=== PATIENT | female | born 1955 | race Caucasian/White ===

== ENCOUNTER → 2017-08-02 11:51 | Outpatient (CLI) | payer MEDICAID, SELFPAY ==
--- NOTE | 2017-08-02 12:03 | XR_ITS ---
XR chest 2V HISTORY: ITS.REASON: SHORTNESS OF BREATH,LUNG DISEASE ORDERING PHYSICIAN: Facundo Carrera PATIENT AGE: 62 years COMPARISON: 06-10-15 FINDINGS: There is cardiomegaly. There is chronic pulmonary fibrotic changes as before. There is slight increased density in the right upper lobe compared to the previous exam which could represent superimposed pneumonia. There is also increased density in the lower lobes however, this is felt to be more technical in nature and due to low lung volumes and the superimposed pulmonary fibrosis. There is a right shoulder prosthesis present. IMPRESSION: Diffuse pulmonary fibrosis. Interval development of increased density in the right upper lobe posteriorly. This could be related to pneumonia. Ongoing fibrotic change or even developing mass is a consideration. Consider chest CT with contrast for further evaluation
== END ==
PROVIDERS: PCP Internal Medicine; Visit Provider Internal Medicine
DX: R06.02 Shortness of breath (principal)
CPT/HCPCS: 71046

== ENCOUNTER 2017-11-25 15:51 | Inpatient (IN) ==
--- NOTE | 2017-11-25 15:57 | Emergency Department Note ---
ED Disposition Clinical Impression: Hypoxemia, Mass of right lung, COPD exacerbation Congestive heart failure Qualifiers: Heart failure type: unspecified Heart failure chronicity: unspecified Qualified Code(s): I50.9 - Heart failure, unspecified Disposition: Still a Patient Condition on Discharge: Serious - Critical Care Critical Care Time: Yes Attestation: On , the high probability of a clinically significant, sudden or life threatening deterioration of the following system(s) required my full and direct attention, intervention and personal management. The time I documented below is in addition to time spent performing reported procedures but includes the following listed in this critical care notation. Total Critical Care Time: 35 Vital system(s) involved:: Respiratory Failure My critical care processes included: Assessment & monitoring of V/S, Initial and Re-exams, Data Review/Interpretation, Coordinating Care, Medication Orders and management, Documentation Medical Decision Making - Eric Inquiry Pt receiving controlled substance: No Vital Signs: 11/25/17 15:52 11/25/17 16:08 11/25/17 16:26 Temperature 97.7 F Temperature Source Oral Pulse Rate 105 H Pulse Rate [Right Brachial] 107 H Respiratory Rate 28 H Blood Pressure [Right Arm] 104/69 Blood Pressure Mean [Right Arm] 80 Blood Pressure Source [Right Arm] Automatic Cuff Blood Pressure Position [Right Arm] Sitting 02 Sat by Pulse Oximetry 69 L 69 L 80 L Oxygen Delivery Method Nasal Cannula Nasal Cannula Nasal Cannula Oxygen Flow Rate (LPM) 3.5 6 6 11/25/17 16:45 11/25/17 16:52 Temperature Temperature Source Pulse Rate Pulse Rate [Right Brachial] 98 H Respiratory Rate 22 Blood Pressure [Right Arm] 122/75 Blood Pressure Mean [Right Arm] 90 Blood Pressure Source [Right Arm] Automatic Cuff Blood Pressure Position [Right Arm] Supine 02 Sat by Pulse Oximetry 93 L 96 Oxygen Delivery Method Vapotherm Vapotherm Oxygen Flow Rate (LPM) 45 - Lab Data Lab Results 11/25/17 15:57: Specimen Source Right radial, O2 % 45%, ABG pH 7.46 H, ABG pCO2 31.1 L, ABG pO2 40.9 L, ABG HCO3 21.8 L, ABG Total CO2 22.7 L, ABG O2 Saturation 74 L*, ABG Base Excess -2.0, Foster Test Acceptable 11/25/17 16:00: WBC 7.3, RBC 5.88 H, Hgb 18.3 H*, Hct 58.3 H, MCV 99.2 H, MCH 31.0, MCHC 31.3 L, RDW 15.1, Plt Count 252, MPV 8.2, Neut % (Auto) 69.2, Lymph % (Auto) 24.5, [place] % (Auto) 5.3, Eos % (Auto) 0.3, Baso % (Auto) 0.6, Neut # ( Auto) 5.1, Lymph # (Auto) 1.8, [place] # (Auto) 0.4, Eos # (Auto) 0.0, Baso # (Auto ) 0.1 11/25/17 16:38: Sodium 138, Potassium 5.2 H, Chloride 100, Carbon Dioxide 29, Anion Gap 14.2, BUN 35 H, Creatinine 1.73 H, Estimated Creat Clear 51, Estimated GFR 30 L, Est GFR ( Amer) 36 L, Glucose 172 H, Calcium 9.1, Troponin I 0.03 11/25/17 16:38: B-Natriuretic Peptide 1430 H 11/25/17 16:38: Lactic Acid 4.2 H 11/25/17 17:00: Urine Color Yellow, Urine Appearance Sl cloudy, Urine pH 5.5, Ur Specific [place] >= 1.030, Urine Protein 3+, Urine Glucose (UA) Negative, Urine Ketones Negative, Urine Blood Trace-i, Urine Nitrate Negative, Urine Bilirubin Negative, Urine Urobilinogen 1.0, Ur Leukocyte Esterase Negative Result diagrams: 11/25/17 16:00 11/25/17 16:38 Orders (Tests/Meds): ED MEDICATIONS Generic Name Dose Route Start Last Admin Trade Name Oscarq PRN Reason Stop Dose Admin Enoxaparin Sodium 90 mg 11/25/17 18:02 11/25/17 18:16 Lovenox 100mg/Ml Syringe SQ 12/25/17 18:01 90 mg BID DELMY Administration Azithromycin 500 mg/ Sodium 250 mls @ 250 mls/hr 11/25/17 18:15 Chloride IV 12/09/17 18:14 Q24H DELMY Protocol Ceftriaxone Sodium 1 gm/ 50 mls @ 100 mls/hr 11/25/17 18:15 11/25/17 18:16 Sodium Chloride IV 12/09/17 18:14 100 mls/hr Q24H DELMY Administration Protocol Sodium Chloride 3 ml 11/25/17 16:24 Sodium Chloride 3% 15ml [facility] 12/25/17 16:23 ONCE PRN INDUCE SPUTUM COLLECTION Discontinued Medications Generic Name Dose Route Start Last Admin Trade Name Freq PRN Reason Stop Dose Admin Albuterol/Ipratropium 3 ml 11/25/17 16:06 11/25/17 16:09 Duoneb 3ml [facility] 11/25/17 16:07 3 ml ONCE ONE Administration Furosemide 40 mg 11/25/17 18:01 11/25/17 18:15 Lasix 40mg/4ml Vial IV 11/25/17 18:02 40 mg ONCE ONE Administration Methylprednisolone Sodium Succinate 125 mg 11/25/17 16:09 11/25/17 16:09 Solu-Medrol 125mg/2ml Vial IV 11/25/17 16:10 125 mg ONCE ONE Administration ORDERS Category Date Time Status XR chest portable Stat Exams 11/25/17 15:57 Taken D-Dimer Stat Lab 11/25/17 16:58 Received Lactic Acid Follow Up (4 hr) Stat Lab 11/25/17 17:19 Ordered UA [Urinalysis and Microscopic] Stat Lab 11/25/17 17:00 Results Sputum Culture & Gram Stain Stat Micro 11/25/17 16:24 Ordered Arterial Blood Gas Routine RT 11/25/17 16:15 Received - Radiology Data #1 Image(s): Chest Image Reviewed: Yes I reviewed the patient's radiology image Diffuse fibrosis. Right upper lobe mass. Most recent chest x-ray for comparison is 08/02/17, at which time reading was diffuse pulmonary fibrosis, interval development of increased density in the right upper lobe posteriorly which could be related to pneumonia, ongoing fibrotic change, or even developing mass. Had a chest CT 06/11/15 which did not show a mass. - ECG Data Tracing #1 EKG interpreted by Diego Bolivar MD: Rhythm: sinus tachycardia Rate: 108 [place]: normal Ectopy: none Conduction: normal ST Segment Changes: Nonspecific T Wave Changes: none Q Waves: Septal Right ventricular hypertrophy no evidence of acute ischemia or injury - Physician Consults Physician Consulted: Kati Time: 18:03 Reason -: Admission Comment/Response: Agrees to admit the patient to the hospital. We discussed the patient's clinical information, including history, exam, laboratory and radiology results and ED course. Per hospital procedure, I will write temporary bridge inpatient orders on the patient. Specific orders requested by the admitting physician: No CT angiogram at this time, estimated GFR too low. D -dimer. Lovenox 1 mg/kg twice daily. Lasix IV 1. Recheck labs in the morning. Continue antibiotics, nebulizer treatments, steroids. - Reevaluation(s) Time: 18:23 Reevaluation #1: Much improved. Pulse ox 98% on high flow nasal cannula treatment Medical Decision Narrative: 4:20 PM: Patient does not want to be on BiPAP. She does consent to Vapotherm. General Adult HPI - General Stated complaint: SOA Time Seen by Provider: 11/25/17 15:57 - History of Present Illness HPI narrative: Sent from Dr. Carrera's office due to hypoxia and cyanosis. She says that she was seeing Dr. Carrera because she has been more short of breath for a month, severe for the past 3 days. She has a cough with reed sputum with some blood. She says she is afebrile, but has not taken her temperature. She has increased swelling of her legs for 3 days unresponsive to diuretic. She has a discomfort in her chest like she cannot get a deep enough breath, but no other chest pain. She has COPD. She is on oxygen at home. Smokes 1 cigarette per day. She denies history of congestive heart failure, she does have coronary artery disease and a stent. She says that is a DNR, DO NOT INTUBATE. She has never been BiPAP or CPAP. - Related Data Allergies Allergy/AdvReac Type Severity Reaction Status Date / Time codeine Allergy Unknown Unverified 04/26/17 15:06 [facility] History I have reviewed the patient's past medical history: Yes ROS Obtained: Yes All systems reviewed & no additional complaints - Constitutional Constitutional: Reports fever(s) - Cardiovascular Cardiovascular: Reports as per HPI, Reports leg edema - Respiratory Respiratory: Yes cough, Yes dyspnea, Yes coughing up blood Physical Exam - General General appearance: alert, in distress (Respiratory) - Head Head exam: atraumatic, normocephalic, normal inspection - Eye Eye exam: Present: normal appearance, PERRL, EOMI - ENT ENT exam: Present: normal exam, normal oropharynx, mucous membranes moist, TM's normal bilaterally, normal external ear exam - Neck Neck exam: Present: normal inspection, full ROM, trachea midline. Absent: meningismus, lymphadenopathy - Chest Chest inspection: Present: normal inspection, symmetric chest wall rise. Absent : tenderness - Respiratory Respiratory exam: Present: respiratory distress, other (Decreased breath sounds) - Cardiovascular Cardiovascular exam: Present: regular rate, normal rhythm. Absent: JVD - Abdominal Exam Abdominal exam: Present: soft, normal bowel sounds. Absent: distention, tenderness, guarding - Extremities Exam Extremities exam: Present: other (4+ bilateral pitting pedal and pretibial edema ) - Back Exam Back exam: Present: normal inspection. Absent: tenderness - Neurological Exam Neurological exam: Present: alert, oriented X3 - Psychiatric Psychiatric exam: Present: normal affect, normal mood - Skin Skin exam: Present: warm, dry, intact, normal color
[2017-11-25 16:15] LABS: Basophils # 0.1 K/mm3 (0-0.2); Basophils % 0.6 % (0.1-2.0); Eosinophils % 0.3 % (0.1-12.0); Hematocrit 58.3 % (37.0-47.0); Lymphocytes # 1.8 K/mm3 (0.7-4.5); Lymphocytes % 24.5 K/mm3 (10-50); Mean Corpuscular HGB Conc 31.3 g/dL (31.8-35.4); Mean Corpuscular Volume 99.2 fl (81-99); Mean Platelet Volume 8.2 fl (7.4-10.4); Monocytes # 0.4 K/mm3 (0.1-1.0); Monocytes % 5.3 % (1.7-9.3); Neutrophils # 5.1 K/mm3 (1.8-7.8); Neutrophils % 69.2 % (37.0-80.0); Platelet Count 252 K/mm3 (142-424); Red Blood Count 5.88 M/mm3 (4.20-5.40); Red Cell Distribution Width 15.1 % (11.5-17.5); White Blood Count 7.3 K/mm3 (4.8-10.8)
[2017-11-25 16:57] LABS: Hemoglobin 18.3 g/dL (12.2-16.2)
[2017-11-25 17:05] LABS: Anion Gap 14.2 mEq/L (5-15); Calcium 9.1 mg/dL (8.5-10.1); Potassium 5.2 mmoL/L (3.5-5.1)
[2017-11-25 17:56] LABS: Microscopic, Urine URINE MICROSCOPIC (MICROSCOPIC)
[2017-11-25 18:06] LABS: Appearance,Urine SL CLOUDY (Clear); Blood, Urine TRACE-I (Negative); Color,Urine YELLOW (Yellow); Glucose,Urine (UA) Negative (Negative); Ketones,Urine Negative (Negative); Leukocyte Esterase,Urine Negative (Negative); PH,Urine 5.5 (5.0-8.5); Protein,Urine 3+ (Negative); Specific Gravity, Urine >= 1.030 (1.005-1.030)
[2017-11-25 18:09] LABS: Bilirubin,Urine Negative (Negative)
[2017-11-25 18:36] LABS: Bacteria,Urine 2+ /lpf
--- NOTE | 2017-11-25 22:27 | History & Physical Report ---
*Admission Date: 11/25/17 *Chief complaint: Shortness of air *History of present illness: 62-year-old white female, patient of Dr. Facundo Carrera, who has somewhat fragmented medical care, and has a history of heavy smoking, came to his office because she has been significantly short of air for the past 3 or 4 days. She notes that she has been short of air at baseline for "months." She was found to be hypoxic, tachypneic and in distress, transferred to the emergency department. In the emergency department she was noted to have evidence of hypoxemia. She declined BiPAP therapy and was placed on the new Vapotherm high flow device with fairly good improvement. Other workup included significantly elevated BNP levels, markedly abnormal chest x-ray with evidence of fibrosis but a new circular mass in the right upper chest, and elevated d-dimer levels. Also found to have elevated creatinine and low GFR. She was admitted to floor for IV antibiotics and steroids and diuresis, and feels better after admission the floor on the oxygen delivery device. [facility] History I have reviewed the patient's past medical history: Yes Medical History: Reports:: Chronic Obstructive Pulmonary Disease (COPD), Coronary Artery Disease (Stent Placement At [facility] 3 years ago), Heart Murmur Denies:: Diabetes Mellitus Type 1, Diabetes Mellitus Type 2 - *Social History Smoking Status: Current some day smoker Tobacco Type: cigarettes Alcohol Intake: never - Psychiatric History Expresses thoughts of harming self/others: None Suicide Plan Description: No Plan Review of Systems - Review of Systems Review of systems:: pertinent systems reviewed and negative unless documented below - Constitutional Reports malaise, Reports weakness - *Cardiovascular Reports shortness of breath, Reports shortness of breath with activity, Reports generalized swelling - *Respiratory Reports change in phlegm color, Reports chest congestion, Reports shortness of breath, Reports shortness of breath with activity, Reports excessive phlegm production - Endocrine Reports rapid, pounding, or irregular heartbeat Meds Allergies Allergy/AdvReac Type Severity Reaction Status Date / Time codeine Allergy Unknown Verified 11/25/17 22:22 Exam Vital signs and Labs for Last 24 Hours: Temp Pulse Resp BP Pulse Ox 97.5 F L 104 H 90 H 106/72 90 L 11/25/17 20:00 11/25/17 20:20 11/25/17 20:00 11/25/17 20:00 11/25/17 20:00 Laboratory Results - last 24 hr 11/25/17 15:57: Specimen Source Right radial, O2 % 45%, ABG pH 7.46 H, ABG pCO2 31.1 L, ABG pO2 40.9 L, ABG HCO3 21.8 L, ABG Total CO2 22.7 L, ABG O2 Saturation 74 L*, ABG Base Excess -2.0, Foster Test Acceptable 11/25/17 16:00: WBC 7.3, RBC 5.88 H, Hgb 18.3 H*, Hct 58.3 H, MCV 99.2 H, MCH 31.0, MCHC 31.3 L, RDW 15.1, Plt Count 252, MPV 8.2, Neut % (Auto) 69.2, Lymph % (Auto) 24.5, [place] % (Auto) 5.3, Eos % (Auto) 0.3, Baso % (Auto) 0.6, Neut # ( Auto) 5.1, Lymph # (Auto) 1.8, [place] # (Auto) 0.4, Eos # (Auto) 0.0, Baso # (Auto ) 0.1 11/25/17 16:38: Sodium 138, Potassium 5.2 H, Chloride 100, Carbon Dioxide 29, Anion Gap 14.2, BUN 35 H, Creatinine 1.73 H, Estimated Creat Clear 51, Estimated GFR 30 L, Est GFR ( Amer) 36 L, Glucose 172 H, Calcium 9.1, Troponin I 0.03 11/25/17 16:38: B-Natriuretic Peptide 1430 H 11/25/17 16:38: Lactic Acid 4.2 H 11/25/17 16:58: D-Dimer 960 H* 11/25/17 17:00: Urine Color Yellow, Urine Appearance Sl cloudy, Urine pH 5.5, Ur Specific [place] >= 1.030, Urine Protein 3+, Urine Glucose (UA) Negative, Urine Ketones Negative, Urine Blood Trace-i, Urine Nitrate Negative, Urine Bilirubin Negative, Urine Urobilinogen 1.0, Ur Leukocyte Esterase Negative, Urine RBC None, Urine WBC 3-5, Ur Squamous Epith Cells 3-5, Urine Bacteria 2+, Hyaline Casts 10-20, Fine Granular Casts 10-20 11/25/17 20:40: Lactic Acid Fup @ 4Hr 2.4 H I & O for Last 24 hours: Intake & Output 11/23/17 11/24/17 11/25/17 11/26/17 11:59 11:59 11:59 11:59 Intake Total 50 / 50 Balance 50 / 50 Weight 210 lb Microbiology Reports for the Last 24 Hours: Microbiology 11/25/17 19:20 Sputum - Expectorated Sputum Gram Stain - Final Narrative: Patient is pleasant, alert, oriented 3. Oxygen saturation on high flow oxygen delivery device is low 90% range. Lungs have diffuse crackles and rhonchi bilaterally. Heart exam is compromised because of her lung findings but her rate is in the mid 80s and in sinus rhythm on monitoring. Abdomen soft, moderately obese. Extremities have 1+ ankle edema. Nonpitting. She is able to move extremities well. Oropharynx is clear. She has no facial nerve abnormalities. H&P: Result - Labs Labs: Short CBC 11/25/17 Range/Units 16:00 WBC 7.3 (4.8-10.8) K/mm3 Hgb 18.3 H* (12.2-16.2) g/dL Hct 58.3 H (37.0-47.0) % Plt Count 252 (142-424) K/mm3 BMP 11/25/17 16:38 Sodium 138 Potassium 5.2 H Chloride 100 Carbon Dioxide 29 BUN 35 H Creatinine 1.73 H Glucose 172 H Calcium 9.1 Cardiac Enzymes 11/25/17 Range/Units 16:38 Troponin I 0.03 (0.00-0.06) ng/ml Urine 11/25/17 Range/Units 17:00 Urine Color Yellow (Yellow) Urine Appearance Sl cloudy (Clear) Urine pH 5.5 (5.0-8.5) Ur Specific [place] >= 1.030 (1.005-1.030) Urine Protein 3+ (Negative) Urine Glucose (UA) Negative (Negative) Assessment and Plan (1) Elevated d-dimer Current visit: Yes Status: Acute Category: Medical Code(s): R79.89 - Other specified abnormal findings of blood chemistry Reasons for elevated d-dimer. However certainly needs to be evaluated for pulmonary embolism. VQ scan would be woefully inaccurate in this patient with strikingly abnormal chest x-ray. Her renal function may preclude C contrast. Treat overnight with Lovenox and hopefully renal function might improve tomorrow morning. (2) Coronary artery disease Current visit: Yes Status: Acute Category: Medical Code(s): I25.10 - Atherosclerotic heart disease of [place] coronary artery without angina pectoris Multiple issues with possible CHF symptomatology. Check records from [facility]. Echocardiogram when available gentle diuresis overnight (3) COPD exacerbation Current visit: Yes Status: Acute Category: Medical Code(s): J44.1 - Chronic obstructive pulmonary disease with (acute) exacerbation Oxygenation, pulmonary toilet, IV steroids, IV antibiotics. Sputum culture pending (4) Congestive heart failure Current visit: Yes Status: Acute Qualifiers: Heart failure type: unspecified Heart failure chronicity: unspecified Qualified Code(s): I50.9 - Heart failure, unspecified Category: Medical Code(s): I50.9 - Heart failure, unspecified (5) Hypoxemia Current visit: Yes Status: Acute Category: Medical Code(s): R09.02 - Hypoxemia Improving with high flow oxygen therapy (6) Mass of right lung Current visit: Yes Status: Acute Category: Medical Code(s): R91.8 - Other nonspecific abnormal finding of lung field Markedly abnormal chest x-ray. If unable to do chest CT with contrast tomorrow will perform noncontrast CT scan to try to get more information about this lung mass.
[2017-11-26 04:21] LABS: Basophils % 0.2 % (0.1-2.0); Eosinophils % 0.2 % (0.1-12.0); Hematocrit 51.9 % (37.0-47.0); Lymphocytes # 0.8 K/mm3 (0.7-4.5); Lymphocytes % 13.6 K/mm3 (10-50); Mean Corpuscular Hemoglobin 30.7 pg (27.0-31.2); Mean Corpuscular Volume 98.9 fl (81-99); Mean Platelet Volume 8.1 fl (7.4-10.4); Monocytes # 0.2 K/mm3 (0.1-1.0); Monocytes % 2.6 % (1.7-9.3); Neutrophils # 4.9 K/mm3 (1.8-7.8); Neutrophils % 83.4 % (37.0-80.0); Platelet Count 191 K/mm3 (142-424); Red Blood Count 5.25 M/mm3 (4.20-5.40); Red Cell Distribution Width 15.1 % (11.5-17.5); White Blood Count 5.9 K/mm3 (4.8-10.8)
[2017-11-26 04:25] LABS: Hemoglobin 16.1 g/dL (12.2-16.2)
[2017-11-26 04:29] LABS: Anion Gap 8.6 mEq/L (5-15); Potassium 5.6 mmoL/L (3.5-5.1)
--- NOTE | 2017-11-26 07:53 | Progress Note ---
Internal Medicine - PN: Subj *Date: 11/26/17 *Time: 07:51 Interval history: Patient slept very soundly overnight. High flow nasal cannula oxygen has done very nicely and has been able to be weaned down to the 80% range. Patient reports to respiratory therapy that her resting saturations in the outpatient setting are usually 82-85% on room air. Exam Vital signs and Labs for Last 24 Hours: Temp Pulse Resp BP Pulse Ox 97.6 F 78 20 128/87 95 11/26/17 04:00 11/26/17 06:45 11/26/17 04:00 11/26/17 04:00 11/26/17 06:45 Laboratory Results - last 24 hr 11/25/17 15:57: Specimen Source Right radial, O2 % 45%, ABG pH 7.46 H, ABG pCO2 31.1 L, ABG pO2 40.9 L, ABG HCO3 21.8 L, ABG Total CO2 22.7 L, ABG O2 Saturation 74 L*, ABG Base Excess -2.0, Foster Test Acceptable 11/25/17 16:00: WBC 7.3, RBC 5.88 H, Hgb 18.3 H*, Hct 58.3 H, MCV 99.2 H, MCH 31.0, MCHC 31.3 L, RDW 15.1, Plt Count 252, MPV 8.2, Neut % (Auto) 69.2, Lymph % (Auto) 24.5, [place] % (Auto) 5.3, Eos % (Auto) 0.3, Baso % (Auto) 0.6, Neut # ( Auto) 5.1, Lymph # (Auto) 1.8, [place] # (Auto) 0.4, Eos # (Auto) 0.0, Baso # (Auto ) 0.1 11/25/17 16:38: Sodium 138, Potassium 5.2 H, Chloride 100, Carbon Dioxide 29, Anion Gap 14.2, BUN 35 H, Creatinine 1.73 H, Estimated Creat Clear 51, Estimated GFR 30 L, Est GFR ( Amer) 36 L, Glucose 172 H, Calcium 9.1, Troponin I 0.03 11/25/17 16:38: B-Natriuretic Peptide 1430 H 11/25/17 16:38: Lactic Acid 4.2 H 11/25/17 16:58: D-Dimer 960 H* 11/25/17 17:00: Urine Color Yellow, Urine Appearance Sl cloudy, Urine pH 5.5, Ur Specific [place] >= 1.030, Urine Protein 3+, Urine Glucose (UA) Negative, Urine Ketones Negative, Urine Blood Trace-i, Urine Nitrate Negative, Urine Bilirubin Negative, Urine Urobilinogen 1.0, Ur Leukocyte Esterase Negative, Urine RBC None, Urine WBC 3-5, Ur Squamous Epith Cells 3-5, Urine Bacteria 2+, Hyaline Casts 10-20, Fine Granular Casts 10-20 11/25/17 20:40: Lactic Acid Fup @ 4Hr 2.4 H 11/25/17 22:40: Lactic Acid Fup @ 2Hr 1.4 11/26/17 04:10: WBC 5.9, RBC 5.25, Hgb 16.1 D, Hct 51.9 H, MCV 98.9, MCH 30.7, MCHC 31.0 L, RDW 15.1, Plt Count 191, MPV 8.1, Neut % (Auto) 83.4 H, Lymph % ( Auto) 13.6, [place] % (Auto) 2.6, Eos % (Auto) 0.2, Baso % (Auto) 0.2, Neut # (Auto ) 4.9, Lymph # (Auto) 0.8, [place] # (Auto) 0.2, Eos # (Auto) 0.0, Baso # (Auto) 0.0 11/26/17 04:10: Sodium 136, Potassium 5.6 H, Chloride 102, Carbon Dioxide 31, Anion Gap 8.6, BUN 36 H, Creatinine 1.57 H, Estimated Creat Clear 57, Estimated GFR 33 L, Est GFR ( Amer) 41 L, Glucose 177 H, Calcium 8.0 L D I & O for Last 24 hours: Intake & Output 11/23/17 11/24/17 11/25/17 11/26/17 11:59 11:59 11:59 11:59 Intake Total 50 / 50 Output Total 600 / 600 Balance -550 / -550 Weight 222 lb 7.143 oz Microbiology Reports for the Last 24 Hours: Microbiology 11/25/17 19:20 Sputum - Expectorated Sputum Gram Stain - Final Narrative: Patient sleeping. When awakened states that she is more comfortable. Lungs have rhonchi throughout but symmetric air entry. No dyspnea. No tachycardia. No swelling in her ankles this morning good diuresis overnight. Assessment and Plan (1) Elevated d-dimer Current visit: Yes Status: Acute Category: Medical Code(s): R79.89 - Other specified abnormal findings of blood chemistry Discussed possibility of CT scan with PE protocol with radiologist. We will hydrate, watch creatinine carefully tomorrow. CT scan today to evaluate for PE and for the increasing lung mass in the right upper lobe. (2) Coronary artery disease Current visit: Yes Status: Acute Category: Medical Code(s): I25.10 - Atherosclerotic heart disease of [place] coronary artery without angina pectoris [facility] (3) COPD exacerbation Current visit: Yes Status: Acute Category: Medical Code(s): J44.1 - Chronic obstructive pulmonary disease with (acute) exacerbation Continue current antibiotics. (4) Congestive heart failure Current visit: Yes Status: Acute Qualifiers: Heart failure type: unspecified Heart failure chronicity: unspecified Qualified Code(s): I50.9 - Heart failure, unspecified Category: Medical Code(s): I50.9 - Heart failure, unspecified Fluid bolus as noted for PE scan. Lasix after this. (5) Hypoxemia Current visit: Yes Status: Acute Category: Medical Code(s): R09.02 - Hypoxemia (6) Mass of right lung Current visit: Yes Status: Acute Category: Medical Code(s): R91.8 - Other nonspecific abnormal finding of lung field CT scan of lung today.
--- NOTE | 2017-11-26 10:33 | Pharmacy Consult Notes ---
[facility] Pharmacy VTE Monitoring - Patient Demographics Admission date: 11/25/17 Report Date: 11/26/17 Time: 10:32 Allergies/Adverse Reactions: Patient Allergies codeine Allergy (Unknown, Verified 11/25/17 22:22) Height: 1.7 m Weight: 100.9 kg Patient Problems: Current Active Problems Hypoxemia (Acute) Mass of right lung (Acute) COPD exacerbation (Acute) Congestive heart failure (Acute) Elevated d-dimer (Acute) Coronary artery disease (Acute) - VTE Risk Labs: VTE Related Lab Results Hgb 16.1 g/dL (12.2-16.2) D 11/26/17 04:10 Hct 51.9 % (37.0-47.0) H 11/26/17 04:10 Plt Count 191 K/mm3 (142-424) 11/26/17 04:10 BUN 36 mg/dL (7-18) H 11/26/17 04:10 Creatinine 1.57 mg/dL (0.55-1.02) H 11/26/17 04:10 Estimated Creat Clear 57 mL/min (0-300) 11/26/17 04:10 VTE Risk Level: Moderate Risk - Prophylaxis VTE Prophylaxis Ordered?: Yes Types of VTE Prophylaxis: Pharmacological Pharmacologic Type: Enoxaparin
[2017-11-27 06:48] LABS: Basophils % 0.1 % (0.1-2.0); Eosinophils % 0.2 % (0.1-12.0); Hematocrit 49.2 % (37.0-47.0); Hemoglobin 15.2 g/dL (12.2-16.2); Lymphocytes # 0.7 K/mm3 (0.7-4.5); Lymphocytes % 6.6 K/mm3 (10-50); Mean Corpuscular HGB Conc 30.9 g/dL (31.8-35.4); Mean Corpuscular Hemoglobin 30.8 pg (27.0-31.2); Mean Corpuscular Volume 99.8 fl (81-99); Mean Platelet Volume 8.4 fl (7.4-10.4); Monocytes # 0.4 K/mm3 (0.1-1.0); Monocytes % 4.1 % (1.7-9.3); Neutrophils # 8.7 K/mm3 (1.8-7.8); Platelet Count 175 K/mm3 (142-424); Red Blood Count 4.93 M/mm3 (4.20-5.40); Red Cell Distribution Width 15.1 % (11.5-17.5); White Blood Count 9.8 K/mm3 (4.8-10.8)
[2017-11-27 07:02] LABS: Albumin Level 1.9 gm/dL (3.4-5.0); Albumin/Globulin Ratio 0.4 (1.1-1.8); Anion Gap 9.9 mEq/L (5-15); Bilirubin,Total 0.4 mg/dL (0.2-1.0); Calcium 8.2 mg/dL (8.5-10.1); Globulin 4.7 gm/dl (1.3-3.2); Potassium 4.9 mmoL/L (3.5-5.1); Total Protein,Serum 6.6 gm/dL (6.4-8.2)
[2017-11-27 07:03] LABS: Hypochromasia 1+; Lymphocytes % 10 % (10-50); Monocytes % 2 % (2-9); Neutrophils % 81 % (42-76); Total Cells Counted 100
[2017-11-27 07:04] LABS: Macrocytosis 1+
--- NOTE | 2017-11-27 08:57 | Progress Note ---
Internal Medicine - PN: Subj *Date: 11/27/17 *Time: 08:55 Interval history: Patient had some significant hypoxia and anxiety spells overnight, treated successfully with some morphine, and Lasix. She had a good urine output. This morning she is wheezing and coughing but has better air entry according to her. Exam Vital signs and Labs for Last 24 Hours: Temp Pulse Resp BP Pulse Ox 97.6 F 83 24 131/77 90 L 11/27/17 08:00 11/27/17 08:00 11/27/17 08:00 11/27/17 08:00 11/27/17 08:00 Laboratory Results - last 24 hr 11/27/17 06:20: WBC 9.8 D, RBC 4.93, Hgb 15.2, Hct 49.2 H, MCV 99.8 H, MCH 30.8 , MCHC 30.9 L, RDW 15.1, Plt Count 175, MPV 8.4, Neut % (Auto) 89.0 H, Lymph % ( Auto) 6.6 L, [place] % (Auto) 4.1, Eos % (Auto) 0.2, Baso % (Auto) 0.1, Neut # ( Auto) 8.7 H, Lymph # (Auto) 0.7, [place] # (Auto) 0.4, Eos # (Auto) 0.0, Baso # ( Auto) 0.0, Total Counted 100, Neutrophils % (Manual) 81 H, Band Neutrophils % 7.0, Lymphocytes % (Manual) 10, Monocytes % (Manual) 2, Platelet Estimate Normal , Hypochromasia 1+, Macrocytosis 1+ 11/27/17 06:20: Sodium 137, Potassium 4.9, Chloride 101, Carbon Dioxide 31, Anion Gap 9.9, BUN 41 H, Creatinine 1.57 H, Estimated Creat Clear 59, Estimated GFR 33 L, Est GFR ( Amer) 41 L, Glucose 193 H, Calcium 8.2 L, Total Bilirubin 0.4, AST 20, ALT 32, Alkaline Phosphatase 100, Total Protein 6.6, Albumin 1.9 L, Globulin 4.7 H, Albumin/Globulin Ratio 0.4 L I & O for Last 24 hours: Intake & Output 11/24/17 11/25/17 11/26/17 11/27/17 11:59 11:59 11:59 11:59 Intake Total 290 / 290 2009 Output Total 600 / 600 2800 / 2800 Balance -310 / -310 -790 / -790 Weight 222 lb 7.143 oz 218 lb 3 oz Microbiology Reports for the Last 24 Hours: Microbiology 11/25/17 17:00 Urine,Clean Catch Urine Culture - Preliminary NO GROWTH AFTER 24 HOURS Narrative: Alert, oriented. Somewhat dysthymic. Disgruntled about her cardiac diet. Lungs have rhonchi bilaterally, diffuse crackles. Fairly symmetric air entry. Heart rate regular. Abdomen soft, no perfusion deficits, wearing JEANNETTE hose. Assessment and Plan (1) Elevated d-dimer Current visit: Yes Status: Acute Category: Medical Code(s): R79.89 - Other specified abnormal findings of blood chemistry CT scan negative for PE. Elevation secondary to be an acute phase reaction. Stop Lovenox. (2) Coronary artery disease Current visit: Yes Status: Acute Category: Medical Code(s): I25.10 - Atherosclerotic heart disease of [place] coronary artery without angina pectoris I reviewed old records from [facility] cath report. 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 There was an unsuccessful attempt to try to bridge the dissection but there was flow into the vessel. She continues to be symptomatic from this event, and the complication of this event has caused her to be very distrustful of any kind of invasive procedures that might go "inside the body." Echocardiogram tomorrow to assess ventricular function. (3) COPD exacerbation Current visit: Yes Status: Acute Category: Medical Code(s): J44.1 - Chronic obstructive pulmonary disease with (acute) exacerbation Slightly improved. Patient with evidence of pulmonary fibrosis. Continue current plan. (4) Congestive heart failure Current visit: Yes Status: Acute Qualifiers: Heart failure type: unspecified Heart failure chronicity: unspecified Qualified Code(s): I50.9 - Heart failure, unspecified Category: Medical Code(s): I50.9 - Heart failure, unspecified Has responded well to Lasix, improve renal function. Renal function also improving after CT scan with contrast. (5) Hypoxemia Current visit: Yes Status: Acute Category: Medical Code(s): R09.02 - Hypoxemia (6) Mass of right lung Current visit: Yes Status: Acute Category: Medical Code(s): R91.8 - Other nonspecific abnormal finding of lung field Patient does not wish bronchoscopy or any kind of procedures "inside my body." I will discuss with radiology whether or not this mass is amenable to CT-guided transthoracic biopsy.
[2017-11-28 06:38] LABS: Basophils % 0.1 % (0.1-2.0); Eosinophils % 0.1 % (0.1-12.0); Hematocrit 48.5 % (37.0-47.0); Hemoglobin 15.1 g/dL (12.2-16.2); Lymphocytes # 0.6 K/mm3 (0.7-4.5); Mean Corpuscular HGB Conc 31.1 g/dL (31.8-35.4); Mean Corpuscular Hemoglobin 30.8 pg (27.0-31.2); Mean Platelet Volume 8.2 fl (7.4-10.4); Monocytes # 0.4 K/mm3 (0.1-1.0); Monocytes % 3.8 % (1.7-9.3); Neutrophils # 8.3 K/mm3 (1.8-7.8); Neutrophils % 89.9 % (37.0-80.0); Platelet Count 160 K/mm3 (142-424); White Blood Count 9.2 K/mm3 (4.8-10.8)
[2017-11-28 06:42] LABS: Anion Gap 11.6 mEq/L (5-15); Calcium 7.9 mg/dL (8.5-10.1); Potassium 4.6 mmoL/L (3.5-5.1)
[2017-11-28 07:39] LABS: Lymphocytes % 7 % (10-50); Monocytes % 4 % (2-9); Neutrophils % 88 % (42-76); Total Cells Counted 100
[2017-11-28 07:40] LABS: RBC Morphology Normal
--- NOTE | 2017-11-28 09:01 | Progress Note ---
Internal Medicine - PN: Subj *Date: 11/28/17 *Time: 08:59 Interval history: Patient this morning is sleepy, as she usually is in the morning. We had a good discussion yesterday afternoon about her CT scan results which showed no evidence of pulmonary embolism, but did show evidence of as suspected, the large mass in the right upper lung field with associated right hilar lymphadenopathy consistent with malignancy. She is adamant about not being transferred to [place] or having any procedures done "inside my body." She is agreeable to considering CT-guided biopsy of the lesion. Exam Vital signs and Labs for Last 24 Hours: Temp Pulse Resp BP Pulse Ox 97.7 F 76 24 129/86 85 L 11/28/17 07:39 11/28/17 07:39 11/28/17 07:39 11/28/17 07:39 11/28/17 07:39 Laboratory Results - last 24 hr 11/28/17 06:06: WBC 9.2, RBC 4.90, Hgb 15.1, Hct 48.5 H, MCV 99.0, MCH 30.8, MCHC 31.1 L, RDW 15.0, Plt Count 160, MPV 8.2, Neut % (Auto) 89.9 H, Lymph % ( Auto) 6.0 L, [place] % (Auto) 3.8, Eos % (Auto) 0.1, Baso % (Auto) 0.1, Neut # ( Auto) 8.3 H, Lymph # (Auto) 0.6 L, [place] # (Auto) 0.4, Eos # (Auto) 0.0, Baso # ( Auto) 0.0, Total Counted 100, Neutrophils % (Manual) 88 H, Lymphocytes % (Manual ) 7 L, Atypical Lymphs % 1.0, Monocytes % (Manual) 4, Platelet Estimate Normal, RBC Morphology Normal 11/28/17 06:06: Sodium 139, Potassium 4.6, Chloride 101, Carbon Dioxide 31, Anion Gap 11.6, BUN 39 H, Creatinine 1.24 H D, Estimated Creat Clear 75, Estimated GFR 44 L, Est GFR ( Amer) 53 L D, Glucose 188 H, Calcium 7.9 L I & O for Last 24 hours: Intake & Output 07/20/18 07/21/18 07/22/18 07/23/18 11:59 11:59 11:59 11:59 Intake Total 290 / 290 2470 / 2470 934 / 934 Output Total 600 / 600 2800 / 2800 1700 / 1700 Balance -310 / -310 -330 / -330 -766 / -766 Weight 222 lb 7.143 oz 218 lb 3 oz 219 lb 7 oz Microbiology Reports for the Last 24 Hours: Microbiology 11/25/17 16:38 Blood Blood Culture - Preliminary NO GROWTH AFTER 48 HOURS 11/25/17 16:38 Blood Blood Culture - Preliminary NO GROWTH AFTER 48 HOURS 11/25/17 17:00 Urine,Clean Catch Urine Culture - Final NO GROWTH AFTER 48 HOURS 11/25/17 19:20 Sputum - Expectorated Sputum Gram Stain - Final 11/25/17 19:20 Sputum - Expectorated Sputum Sputum Culture - Final Normal Respiratory Juanita Narrative: This morning she is sleeping, when awakened is alert. Her lungs actually are fairly clear in the posterior acosta. Heart rate regular. She has no ankle edema. Heart exam is difficult because of her high flow oxygen therapy. Assessment and Plan (1) Elevated d-dimer Current visit: Yes Status: Acute Category: Medical Code(s): R79.89 - Other specified abnormal findings of blood chemistry (2) Coronary artery disease Current visit: Yes Status: Acute Category: Medical Code(s): I25.10 - Atherosclerotic heart disease of [place] coronary artery without angina pectoris (3) COPD exacerbation Current visit: Yes Status: Acute Category: Medical Code(s): J44.1 - Chronic obstructive pulmonary disease with (acute) exacerbation (4) Congestive heart failure Current visit: Yes Status: Acute Qualifiers: Heart failure type: unspecified Heart failure chronicity: unspecified Qualified Code(s): I50.9 - Heart failure, unspecified Category: Medical Code(s): I50.9 - Heart failure, unspecified Echocardiogram pending. Please see notes earlier about her left heart cath report issues and comments from Dr. Mcdermott regarding her CT scan. Patient required Lasix against night after the administration of his eyes and IV in the 250 mL fluid bolus associated with this. I will change azithromycin to p.o. to avoid hopefully nocturnal fluid overload. (5) Hypoxemia Current visit: Yes Status: Acute Category: Medical Code(s): R09.02 - Hypoxemia (6) Mass of right lung Current visit: Yes Status: Acute Category: Medical Code(s): R91.8 - Other nonspecific abnormal finding of lung field Consult radiology for CT-guided biopsy evaluation.
[2017-11-28 18:47] LABS: ABG Base Excess 4.9 mmol/L (-2.4-2.3); ABG HCO3 30.9 mmhg (22.0-26.0); ABG Oxygen Saturation 93 % (90-100); ABG PH 7.33 mmol/L (7.35-7.45); ABG PO2 69.2 mmhg (80-100); ABG TCO2 32.8 mmhg (23-27)
[2017-11-28 18:57] LABS: Allen's Test Acceptable; Oxygen 100% %
[2017-11-28 18:59] LABS: ABG PCO2 60.7 mmhg (35.0-45.0)
--- NOTE | 2017-11-28 19:33 | Progress Note ---
Internal Medicine - PN: Subj *Date: 11/28/17 *Time: 19:36 Interval history: This note serves as an interim summary: Contacted by Nurse at approximately 6:30 PM the patient had rapid response called. Patient reported to have hypoxic episode after receiving Ativan for anxiety. Receive single dose of IV Ativan followed by episode of apnea, cyanosis, hypoxia with O2 saturation 98%. Rapid response called, increased high flow nasal canula to 100% and 40 L. With increased oxygen delivered and elevation of the head of bed patient wanted well with improved coloration, stabilization of mentation,. ABG obtained showing acute hypercapnia and concurrent respiratory acidosis. Reviewed patient's CODE STATUS and she was clear that she did not want aggressive measures to bring her back to life if she stopped breathing or her heart stopped. Obtain chest x-ray showing continued persistent interstitial fibrosis, with interval worsening of left- sided airspace disease/opacification. Patient's fluid status reviewed showing net positive for the past 24 hours. Administered IV Lasix 80 mg 1. Ativan discontinued, hydroxyzine ordered as alternative for repeat anxiety. Reviewed EKG from admission with normal QTc. Exam Vital signs and Labs for Last 24 Hours: Temp Pulse Resp BP Pulse Ox 98.4 F 95 H 22 124/88 93 L 11/28/17 15:45 11/28/17 19:10 11/28/17 15:45 11/28/17 15:45 11/28/17 19:10 Laboratory Results - last 24 hr 11/28/17 06:06: WBC 9.2, RBC 4.90, Hgb 15.1, Hct 48.5 H, MCV 99.0, MCH 30.8, MCHC 31.1 L, RDW 15.0, Plt Count 160, MPV 8.2, Neut % (Auto) 89.9 H, Lymph % ( Auto) 6.0 L, [place] % (Auto) 3.8, Eos % (Auto) 0.1, Baso % (Auto) 0.1, Neut # ( Auto) 8.3 H, Lymph # (Auto) 0.6 L, [place] # (Auto) 0.4, Eos # (Auto) 0.0, Baso # ( Auto) 0.0, Total Counted 100, Neutrophils % (Manual) 88 H, Lymphocytes % (Manual ) 7 L, Atypical Lymphs % 1.0, Monocytes % (Manual) 4, Platelet Estimate Normal, RBC Morphology Normal 11/28/17 06:06: Sodium 139, Potassium 4.6, Chloride 101, Carbon Dioxide 31, Anion Gap 11.6, BUN 39 H, Creatinine 1.24 H D, Estimated Creat Clear 75, Estimated GFR 44 L, Est GFR ( Amer) 53 L D, Glucose 188 H, Calcium 7.9 L 11/28/17 18:44: Specimen Source Left radial, O2 % 100%, ABG pH 7.33 L, ABG pCO2 60.7 H, ABG pO2 69.2 L, ABG HCO3 30.9 H, ABG Total CO2 32.8 H, ABG O2 Saturation 93, ABG Base Excess 4.9 H, Foster Test Acceptable I & O for Last 24 hours: Intake & Output 11/26/17 11/27/17 11/28/17 11/29/17 11:59 11:59 11:59 11:59 Intake Total 290 / 290 2470 / 2470 1294 / 1294 570 / 570 Output Total 600 / 600 2800 / 2800 2300 / 2300 Balance -310 / -310 -330 / -330 -1006 / -1006 570 / 570 Weight 222 lb 7.143 oz 218 lb 3 oz 219 lb 7 oz 219 lb 6.994 oz Microbiology Reports for the Last 24 Hours: Microbiology 11/28/17 09:35 Sputum - Expectorated Sputum Gram Stain - Final 11/25/17 16:38 Blood Blood Culture - Preliminary NO GROWTH AFTER 48 HOURS 11/25/17 16:38 Blood Blood Culture - Preliminary NO GROWTH AFTER 48 HOURS 11/25/17 17:00 Urine,Clean Catch Urine Culture - Final NO GROWTH AFTER 48 HOURS - *Routine Respiratory Exam Comments: Distant breath sounds, bibasilar crackles coarse, inspiratory and expiratory wheeze with expiratory squeak. - *Routine Cardiovascular Exam Comments: Regular rate and rhythm, no murmurs appreciated - *Routine Extremities Exam Comments: Digital pallor and clubbing of fingers - *Routine Neurological Exam Present: oriented X3 - Routine Psychiatric Exam Present: normal affect Assessment and Plan (1) Elevated d-dimer Current visit: Yes Status: Acute Category: Medical Code(s): R79.89 - Other specified abnormal findings of blood chemistry (2) Coronary artery disease Current visit: Yes Status: Acute Category: Medical Code(s): I25.10 - Atherosclerotic heart disease of [place] coronary artery without angina pectoris (3) COPD exacerbation Current visit: Yes Status: Acute Category: Medical Code(s): J44.1 - Chronic obstructive pulmonary disease with (acute) exacerbation (4) Congestive heart failure Current visit: Yes Status: Acute Qualifiers: Heart failure type: unspecified Heart failure chronicity: unspecified Qualified Code(s): I50.9 - Heart failure, unspecified Category: Medical Code(s): I50.9 - Heart failure, unspecified (5) Hypoxemia Current visit: Yes Status: Acute Category: Medical Code(s): R09.02 - Hypoxemia (6) Mass of right lung Current visit: Yes Status: Acute Category: Medical Code(s): R91.8 - Other nonspecific abnormal finding of lung field - Assessment and plan all Dx Assessment and Plan for all problems:: Acute hypercarbic respiratory failure likely due to medication adverse effect in the setting of chronic CO2 retention, interstitial lung disease, COPD exacerbation -Continue -Diuresis with Lasix 80 mg 1, goal -500 cc by 1 AM, repeat if necessary -Continue duo nebs every 6 hours -Wean high flow nasal cannula as tolerated for goal saturation of 88% overnight
--- NOTE | 2017-11-28 21:26 | Cardiology Report ---
PROCEDURE: 2-D M-mode and Doppler study INDICATIONS FOR THE TEST: Chest pain COPD+ Heart Murmur+ Tobacco Smoking+ Palpitations Fatigue Syncope Edema Hypertension Diabetes Mellitus Rheumatic Fever SOB+BRAUN Obesity+Hyperlipidemia Family History HD Additional History STENT, CAD, ? LUNG CA REFUSES FURTHER TESTING, PERICARDIAL EFFUSION PATIENT INFORMATION HEIGHT: 67 WEIGHT:219 GENDER: Female B/P:106/72 2-D/M-MODE INTERPRETATION: 2-D MEASUREMENTS OBSERVED VALUES IN CMS Right Ventricular Dimension (RVDd) 4.2 Interventricular Septum (Thickness)(IVsd) 1.0 Left Ventricular Internal Dimensions(LVIDd) 4.1 Left Ventricular Posterior Wall (Thickness)(LVPWd) 0.9 Aortic Root 3.3 Aortic Cusp Separation 1.9 Left Atrial Dimensions (LAD) 4.6 2D 1. Left atrium is mildly enlarged, left ventricle is normal size, visually estimated ejection fraction approximately 50%, there is abnormal septal motion, there is flattening of the interventricular septum during systole and diastole, consistent with pressure and volume overload on right ventricle. 2. The right atrium and right ventricle are markedly enlarged with moderately reduced contractility of the right ventricle. 3. The aortic valve is minimally thickened and fibrosed. 4. The mitral and tricuspid valve leaflets are minimally thickened. 5. The pulmonic valve is poorly visualized. 6. There is small circumferential pericardial effusion noted. DOPPLER INTERROGATION: Doppler interrogation of the aortic, mitral and tricuspid valvular presence of mild mitral and moderate tricuspid regurgitation, calculated right ventricular systolic pressure of 72 mmHg consistent with severe pulmonary hypertension, inferior vena cava is dilated without significant inspiratory collapse. Doppler evidence of impaired relaxation seen. CONCLUSION: 1. Normal left ventricular size, visually estimated ejection fraction 50%, with abnormal septal motion as described above, Doppler evidence of impaired LV relaxation seen. 2. Mild mitral and moderate tricuspid regurgitation, calculated right ventricular systolic pressure is 72 mmHg consistent with severe pulmonary hypertension, inferior vena cava is dilated without significant inspiratory collapse. 3. Markedly enlarged right ventricle with moderately reduced contractility. 4. Small circumferential pericardial effusion noted.
[2017-11-28 22:34] LABS: ABG Base Excess 6.6 mmol/L (-2.4-2.3); ABG HCO3 32.2 mmhg (22.0-26.0); ABG Oxygen Saturation 91 % (90-100); ABG PH 7.35 mmol/L (7.35-7.45); ABG PO2 64.1 mmhg (80-100)
[2017-11-28 22:36] LABS: Allen's Test Acceptable; Oxygen 90% %
[2017-11-28 22:37] LABS: ABG PCO2 59.6 mmhg (35.0-45.0)
[2017-11-29 08:20] LABS: Anion Gap 8.3 mEq/L (5-15); Calcium 7.8 mg/dL (8.5-10.1); Potassium 4.3 mmoL/L (3.5-5.1)
--- NOTE | 2017-11-29 08:40 | Progress Note ---
Internal Medicine - PN: Subj *Date: 11/29/17 *Time: 17:22 Interval history: Ms. Blanc continueed to require high levels of supplemental oxygen overnight. Able to wean to 85% on high flow however oxygen saturations this morning high 70s. Increased back to 100%. Blood gas overnight stable, and system with hypercapnic and hypoxemic respiratory failure. Diuresed overnight with -2 L output. Cough has been productive with blood-tinged sputum. otherwise patient having episodes of anxiety; denies chest pain, nausea vomiting, diarrhea, afebrile. Exam Vital signs and Labs for Last 24 Hours: Temp Pulse Resp BP Pulse Ox 97.1 F L 82 22 136/88 85 L 11/29/17 07:38 11/29/17 07:38 11/29/17 07:38 11/29/17 07:38 11/29/17 07:45 Laboratory Results - last 24 hr 11/28/17 18:44: Specimen Source Left radial, O2 % 100%, ABG pH 7.33 L, ABG pCO2 60.7 H, ABG pO2 69.2 L, ABG HCO3 30.9 H, ABG Total CO2 32.8 H, ABG O2 Saturation 93, ABG Base Excess 4.9 H, Foster Test Acceptable 11/28/17 22:32: Specimen Source Left radial, O2 % 90%, ABG pH 7.35, ABG pCO2 59.6 H, ABG pO2 64.1 L, ABG HCO3 32.2 H, ABG Total CO2 34.0 H, ABG O2 Saturation 91, ABG Base Excess 6.6 H, Foster Test Acceptable 11/29/17 08:00: Sodium 140, Potassium 4.3, Chloride 101, Carbon Dioxide 35 H, Anion Gap 8.3, BUN 39 H, Creatinine 1.28 H, Estimated Creat Clear 73, Estimated GFR 42 L, Est GFR ( Amer) 51 L, Glucose 300 H, Calcium 7.8 L I & O for Last 24 hours: Intake & Output 11/26/17 11/27/17 11/28/17 11/29/17 11:59 11:59 11:59 11:59 Intake Total 290 / 290 2470 / 2470 1294 / 1294 710 / 710 Output Total 600 / 600 2800 / 2800 2300 / 2300 2600 / 2600 Balance -310 / -310 -330 / -330 -1006 / -1006 -1890 / -1890 Weight 222 lb 7.143 oz 218 lb 3 oz 219 lb 7 oz 220 lb 9 oz Microbiology Reports for the Last 24 Hours: Microbiology 11/28/17 09:35 Sputum - Expectorated Sputum Gram Stain - Final 11/28/17 09:35 Sputum - Expectorated Sputum Sputum Culture - Preliminary - *Routine HEENT Exam Head: Present: cushingoid faces Eye: Present: EOMI, PERRL ENT: Present: mucous membranes moist Comments: High flow nasal cannula in place - *Routine Neck Exam Present: JVD Comments: Thick neck, no lymphadenopathy - *Routine Respiratory Exam Present: accessory muscle use, decreased breath sounds, prolonged expiratory phase Comments: Distant breath sounds, coarse crackles most prominent left lower lobe, diffuse inspiratory expiratory wheeze - *Routine Cardiovascular Exam Present: RRR. Absent: murmur, gallop, rubs - *Routine Abdominal Exam Present: soft, normoactive bowel sounds Comments: Obese - *Routine Rectal Exam Patient deferred: visual exam - *Routine Exam Patient deferred: external exam - *Routine Extremities Exam Present: clubbing, edema (2+ edema to knees) Comments: Feet cool to touch, pallor - *Routine Skin Exam Present: intact, dry - *Routine Neurological Exam Present: alert, oriented X3, CN II-XII intact, moving all extremities Assessment and Plan (1) Elevated d-dimer Current visit: Yes Status: Acute Category: Medical Code(s): R79.89 - Other specified abnormal findings of blood chemistry (2) Coronary artery disease Current visit: Yes Status: Acute Category: Medical Code(s): I25.10 - Atherosclerotic heart disease of [place] coronary artery without angina pectoris (3) COPD exacerbation Current visit: Yes Status: Acute Category: Medical Code(s): J44.1 - Chronic obstructive pulmonary disease with (acute) exacerbation (4) Congestive heart failure Current visit: Yes Status: Acute Qualifiers: Heart failure type: unspecified Heart failure chronicity: unspecified Qualified Code(s): I50.9 - Heart failure, unspecified Category: Medical Code(s): I50.9 - Heart failure, unspecified (5) Hypoxemia Current visit: Yes Status: Acute Category: Medical Code(s): R09.02 - Hypoxemia (6) Mass of right lung Current visit: Yes Status: Acute Category: Medical Code(s): R91.8 - Other nonspecific abnormal finding of lung field - Assessment and plan all Dx Assessment and Plan for all problems:: Patient continues to have acute on chronic hypercarbic and hypoxemic respiratory failure. -Suspect secondary to CHF exacerbation versus left lower lobe pneumonia -Additionally patient has large mass in right upper lobe concerning for neoplasm -Continue antibiotics, continue high flow nasal cannula supplemental oxygen -Continue steroids -Continue diuretics for net negative goal 500 cc today -Restarted Lovenox due to DVT risk -Consult pulmonology
--- NOTE | 2017-11-29 08:44 | Progress Note ---
Internal Medicine - PN: Subj *Date: 11/29/17 *Time: 08:44 Exam Vital signs and Labs for Last 24 Hours: Temp Pulse Resp BP Pulse Ox 97.1 F L 82 22 136/88 85 L 11/29/17 07:38 11/29/17 07:38 11/29/17 07:38 11/29/17 07:38 11/29/17 07:45 Laboratory Results - last 24 hr 11/28/17 18:44: Specimen Source Left radial, O2 % 100%, ABG pH 7.33 L, ABG pCO2 60.7 H, ABG pO2 69.2 L, ABG HCO3 30.9 H, ABG Total CO2 32.8 H, ABG O2 Saturation 93, ABG Base Excess 4.9 H, Foster Test Acceptable 11/28/17 22:32: Specimen Source Left radial, O2 % 90%, ABG pH 7.35, ABG pCO2 59.6 H, ABG pO2 64.1 L, ABG HCO3 32.2 H, ABG Total CO2 34.0 H, ABG O2 Saturation 91, ABG Base Excess 6.6 H, Foster Test Acceptable 11/29/17 08:00: Sodium 140, Potassium 4.3, Chloride 101, Carbon Dioxide 35 H, Anion Gap 8.3, BUN 39 H, Creatinine 1.28 H, Estimated Creat Clear 73, Estimated GFR 42 L, Est GFR ( Amer) 51 L, Glucose 300 H, Calcium 7.8 L I & O for Last 24 hours: Intake & Output 11/26/17 11/27/17 11/28/17 11/29/17 23:59 23:59 23:59 23:59 Intake Total 2009 1624 / 1624 940 / 940 140 / 140 Output Total 2099 / 2099 1300 / 1300 4100 / 4100 800 / 800 Balance -90 / -90 324 / 324 -3160 / -3160 -660 / -660 Weight 100.9 kg 98.968 kg 99.535 kg 100.045 kg Microbiology Reports for the Last 24 Hours: Microbiology 11/28/17 09:35 Sputum - Expectorated Sputum Gram Stain - Final 11/28/17 09:35 Sputum - Expectorated Sputum Sputum Culture - Preliminary Assessment and Plan (1) Elevated d-dimer Current visit: Yes Status: Acute Category: Medical Code(s): R79.89 - Other specified abnormal findings of blood chemistry (2) Coronary artery disease Current visit: Yes Status: Acute Category: Medical Code(s): I25.10 - Atherosclerotic heart disease of [place] coronary artery without angina pectoris (3) COPD exacerbation Current visit: Yes Status: Acute Category: Medical Code(s): J44.1 - Chronic obstructive pulmonary disease with (acute) exacerbation (4) Congestive heart failure Current visit: Yes Status: Acute Qualifiers: Heart failure type: unspecified Heart failure chronicity: unspecified Qualified Code(s): I50.9 - Heart failure, unspecified Category: Medical Code(s): I50.9 - Heart failure, unspecified (5) Hypoxemia Current visit: Yes Status: Acute Category: Medical Code(s): R09.02 - Hypoxemia (6) Mass of right lung Current visit: Yes Status: Acute Category: Medical Code(s): R91.8 - Other nonspecific abnormal finding of lung field The patient's infection will respond to the chosen ABx?: Yes Is the patient receiving the right drug, dose, and route?: Yes Could a more targeted ABx be ordered?: No
--- NOTE | 2017-11-29 09:46 | Progress Note ---
Internal Medicine - PN: Subj *Date: 11/29/17 *Time: 09:43 Exam Vital signs and Labs for Last 24 Hours: Temp Pulse Resp BP Pulse Ox 97.1 F L 76 22 136/88 93 L 11/29/17 07:38 11/29/17 09:22 11/29/17 07:38 11/29/17 07:38 11/29/17 09:22 Laboratory Results - last 24 hr 11/28/17 18:44: Specimen Source Left radial, O2 % 100%, ABG pH 7.33 L, ABG pCO2 60.7 H, ABG pO2 69.2 L, ABG HCO3 30.9 H, ABG Total CO2 32.8 H, ABG O2 Saturation 93, ABG Base Excess 4.9 H, Foster Test Acceptable 11/28/17 22:32: Specimen Source Left radial, O2 % 90%, ABG pH 7.35, ABG pCO2 59.6 H, ABG pO2 64.1 L, ABG HCO3 32.2 H, ABG Total CO2 34.0 H, ABG O2 Saturation 91, ABG Base Excess 6.6 H, Foster Test Acceptable 11/29/17 08:00: Sodium 140, Potassium 4.3, Chloride 101, Carbon Dioxide 35 H, Anion Gap 8.3, BUN 39 H, Creatinine 1.28 H, Estimated Creat Clear 73, Estimated GFR 42 L, Est GFR ( Amer) 51 L, Glucose 300 H, Calcium 7.8 L I & O for Last 24 hours: Intake & Output 11/26/17 11/27/17 11/28/17 11/29/17 23:59 23:59 23:59 23:59 Intake Total 2009 1624 / 1624 940 / 940 140 / 140 Output Total 2099 / 2099 1300 / 1300 4100 / 4100 800 / 800 Balance -90 / -90 324 / 324 -3160 / -3160 -660 / -660 Weight 222 lb 7.143 oz 218 lb 3 oz 219 lb 6.994 oz 220 lb 9 oz Microbiology Reports for the Last 24 Hours: Microbiology 11/28/17 09:35 Sputum - Expectorated Sputum Gram Stain - Final 11/28/17 09:35 Sputum - Expectorated Sputum Sputum Culture - Preliminary - *Routine Abdominal Exam Present: soft, tenderness, surgical scars. Absent: normoactive bowel sounds - *Routine Extremities Exam Absent: clubbing - Detailed Eye Exam Eyelids: Left normal inspection Assessment and Plan (1) Elevated d-dimer Current visit: Yes Status: Acute Category: Medical Code(s): R79.89 - Other specified abnormal findings of blood chemistry (2) Coronary artery disease Current visit: Yes Status: Acute Category: Medical Code(s): I25.10 - Atherosclerotic heart disease of [place] coronary artery without angina pectoris (3) COPD exacerbation Current visit: Yes Status: Acute Category: Medical Code(s): J44.1 - Chronic obstructive pulmonary disease with (acute) exacerbation (4) Congestive heart failure Current visit: Yes Status: Acute Qualifiers: Heart failure type: unspecified Heart failure chronicity: unspecified Qualified Code(s): I50.9 - Heart failure, unspecified Category: Medical Code(s): I50.9 - Heart failure, unspecified (5) Hypoxemia Current visit: Yes Status: Acute Category: Medical Code(s): R09.02 - Hypoxemia (6) Mass of right lung Current visit: Yes Status: Acute Category: Medical Code(s): R91.8 - Other nonspecific abnormal finding of lung field
[2017-11-30 06:34] LABS: Basophils % 0.1 % (0.1-2.0); Eosinophils % 0.3 % (0.1-12.0); Hematocrit 49.3 % (37.0-47.0); Hemoglobin 15.1 g/dL (12.2-16.2); Lymphocytes # 0.4 K/mm3 (0.7-4.5); Lymphocytes % 4.9 K/mm3 (10-50); Mean Corpuscular HGB Conc 30.6 g/dL (31.8-35.4); Mean Corpuscular Hemoglobin 30.5 pg (27.0-31.2); Mean Corpuscular Volume 99.7 fl (81-99); Monocytes # 0.3 K/mm3 (0.1-1.0); Monocytes % 4.3 % (1.7-9.3); Neutrophils # 7.2 K/mm3 (1.8-7.8); Neutrophils % 90.5 % (37.0-80.0); Platelet Count 141 K/mm3 (142-424); Red Blood Count 4.95 M/mm3 (4.20-5.40); Red Cell Distribution Width 14.7 % (11.5-17.5)
[2017-11-30 06:39] LABS: Anion Gap 4.4 mEq/L (5-15); Calcium 7.9 mg/dL (8.5-10.1); Potassium 4.4 mmoL/L (3.5-5.1)
[2017-11-30 08:01] LABS: Lymphocytes % 2 % (10-50); Monocytes % 7 % (2-9); Neutrophils % 91 % (42-76); Total Cells Counted 100
[2017-11-30 08:03] LABS: Macrocytosis 1+
[2017-11-30 08:07] LABS: Tear Drop Cells 1+
--- NOTE | 2017-11-30 08:34 | Progress Note ---
Internal Medicine - PN: Subj *Date: 11/30/17 *Time: 08:32 Interval history: Events of yesterday noted. Patient is somewhat better after aggressive diuresis during the evening. She is sleeping but when awakened is alert, oriented. Respiratory therapy has been able to turn down her flow high flow oxygen device to 90% saturation. Exam Vital signs and Labs for Last 24 Hours: Temp Pulse Resp BP Pulse Ox 97.9 F 75 24 135/80 89 L 11/30/17 07:59 11/30/17 07:59 11/30/17 07:59 11/30/17 07:59 11/30/17 08:07 Laboratory Results - last 24 hr 11/30/17 05:45: WBC 8.0, RBC 4.95, Hgb 15.1, Hct 49.3 H, MCV 99.7 H, MCH 30.5, MCHC 30.6 L, RDW 14.7, Plt Count 141 L, MPV 8.0, Neut % (Auto) 90.5 H, Lymph % ( Auto) 4.9 L, [place] % (Auto) 4.3, Eos % (Auto) 0.3, Baso % (Auto) 0.1, Neut # ( Auto) 7.2, Lymph # (Auto) 0.4 L, [place] # (Auto) 0.3, Eos # (Auto) 0.0, Baso # ( Auto) 0.0, Total Counted 100, Neutrophils % (Manual) 91 H, Lymphocytes % (Manual ) 2 L, Monocytes % (Manual) 7, Platelet Estimate Normal, Macrocytosis 1+, Tear Drop Cells 1+ 11/30/17 05:45: Sodium 138, Potassium 4.4, Chloride 101, Carbon Dioxide 37 H, Anion Gap 4.4 L, BUN 38 H, Creatinine 1.16 H, Estimated Creat Clear 82, Estimated GFR 47 L, Est GFR ( Amer) 57 L, Glucose 295 H, Calcium 7.9 L I & O for Last 24 hours: Intake & Output 11/27/17 11/28/17 11/29/17 11/30/17 11:59 11:59 11:59 11:59 Intake Total 2470 / 2470 1294 / 1294 710 / 710 1461 / 1461 Output Total 2800 / 2800 2300 / 2300 2600 / 2600 2150 / 2150 Balance -330 / -330 -1006 / -1006 -1890 / -1890 -689 / -689 Weight 218 lb 3 oz 219 lb 7 oz 220 lb 9 oz 225 lb Microbiology Reports for the Last 24 Hours: Microbiology 11/28/17 09:35 Sputum - Expectorated Sputum Gram Stain - Final 11/28/17 09:35 Sputum - Expectorated Sputum Sputum Culture - Preliminary Narrative: Patient is awake. Heart rate regular. Exam however is compromised by her abnormal adventitious lung sounds. Lungs have crackles and rhonchi throughout. Symmetric air entry. No edema. Noticeable clubbing in her fingers as before. Assessment and Plan (1) Elevated d-dimer Current visit: Yes Status: Acute Category: Medical Code(s): R79.89 - Other specified abnormal findings of blood chemistry (2) Coronary artery disease Current visit: Yes Status: Acute Category: Medical Code(s): I25.10 - Atherosclerotic heart disease of [place] coronary artery without angina pectoris (3) COPD exacerbation Current visit: Yes Status: Acute Category: Medical Code(s): J44.1 - Chronic obstructive pulmonary disease with (acute) exacerbation (4) Congestive heart failure Current visit: Yes Status: Acute Qualifiers: Heart failure type: unspecified Heart failure chronicity: unspecified Qualified Code(s): I50.9 - Heart failure, unspecified Category: Medical Code(s): I50.9 - Heart failure, unspecified (5) Hypoxemia Current visit: Yes Status: Acute Category: Medical Code(s): R09.02 - Hypoxemia (6) Mass of right lung Current visit: Yes Status: Acute Category: Medical Code(s): R91.8 - Other nonspecific abnormal finding of lung field - Assessment and plan all Dx Assessment and Plan for all problems:: Significant morbidity issues. Patient does not wish invasive therapies, intubation, Cipro [place] for pulmonary evaluation. In this context with 3 significant and probable terminal lung diseases-lung [id number] fibrosis-I have actually brought up the possibility of hospice evaluation and transfer to a facility with Hospice care. Patient will think about this and we will discuss this later today.
[2017-11-30 09:23] LABS: ABG HCO3 21.8 mmhg (22.0-26.0); ABG PCO2 31.1 mmhg (35.0-45.0); ABG PH 7.46 mmol/L (7.35-7.45); ABG PO2 40.9 mmhg (80-100); ABG TCO2 22.7 mmhg (23-27)
[2017-11-30 09:24] LABS: ABG Oxygen Saturation 74 % (90-100); Oxygen 6LPM %
[2017-11-30 09:25] LABS: Allen's Test ACCEPTABLE
[2017-12-01 06:58] LABS: Basophils % 0.1 % (0.1-2.0); Eosinophils % 0.4 % (0.1-12.0); Hematocrit 49.3 % (37.0-47.0); Lymphocytes # 0.5 K/mm3 (0.7-4.5); Lymphocytes % 5.7 K/mm3 (10-50); Mean Corpuscular HGB Conc 30.4 g/dL (31.8-35.4); Mean Corpuscular Hemoglobin 30.4 pg (27.0-31.2); Mean Platelet Volume 8.4 fl (7.4-10.4); Monocytes # 0.4 K/mm3 (0.1-1.0); Monocytes % 4.9 % (1.7-9.3); Neutrophils # 7.6 K/mm3 (1.8-7.8); Neutrophils % 88.8 % (37.0-80.0); Platelet Count 146 K/mm3 (142-424); Red Blood Count 4.92 M/mm3 (4.20-5.40); Red Cell Distribution Width 14.5 % (11.5-17.5); White Blood Count 8.6 K/mm3 (4.8-10.8)
[2017-12-01 07:14] LABS: Albumin Level 1.9 gm/dL (3.4-5.0); Albumin/Globulin Ratio 0.5 (1.1-1.8); Anion Gap 2.6 mEq/L (5-15); Bilirubin,Total 0.6 mg/dL (0.2-1.0); Calcium 7.9 mg/dL (8.5-10.1); Globulin 3.9 gm/dl (1.3-3.2); Potassium 4.6 mmoL/L (3.5-5.1); Total Protein,Serum 5.8 gm/dL (6.4-8.2)
[2017-12-01 09:43] LABS: Lymphocytes % 11 % (10-50); Neutrophils % 88 % (42-76); Total Cells Counted 100
[2017-12-01 09:44] LABS: Anisocytosis 1+; Macrocytosis 1+
--- NOTE | 2017-12-01 10:58 | Progress Note ---
Internal Medicine - PN: Subj *Date: 12/01/17 *Time: 08:15 Interval history: Patient continues to have significant shortness of breath. Alert and oriented x3. Rate and rhythm regular. No LE edema. Abdomen soft and nontender. High flow oxygen device is back up to 100%. Crackles and loose rhonchi throughout all lung acosta. Exam Vital signs and Labs for Last 24 Hours: Temp Pulse Resp BP Pulse Ox 97.6 F 85 20 134/75 90 L 12/01/17 08:00 12/01/17 10:10 12/01/17 08:00 12/01/17 08:00 12/01/17 08:00 Laboratory Results - last 24 hr 12/01/17 06:15: WBC 8.6, RBC 4.92, Hgb 15.0, Hct 49.3 H, MCV 100.0 H, MCH 30.4, MCHC 30.4 L, RDW 14.5, Plt Count 146, MPV 8.4, Neut % (Auto) 88.8 H, Lymph % ( Auto) 5.7 L, [place] % (Auto) 4.9, Eos % (Auto) 0.4, Baso % (Auto) 0.1, Neut # ( Auto) 7.6, Lymph # (Auto) 0.5 L, [place] # (Auto) 0.4, Eos # (Auto) 0.0, Baso # ( Auto) 0.0, Total Counted 100, Neutrophils % (Manual) 88 H, Lymphocytes % (Manual ) 11, Atypical Lymphs % 1.0, Platelet Estimate Normal, Anisocytosis 1+, Macrocytosis 1+ 12/01/17 06:15: Sodium 137, Potassium 4.6, Chloride 100, Carbon Dioxide 39 H, Anion Gap 2.6 L, BUN 36 H, Creatinine 1.06 H, Estimated Creat Clear 90, Estimated GFR 53 L, Est GFR ( Amer) 64, Glucose 331 H, Calcium 7.9 L, Total Bilirubin 0.6, AST 18, ALT 67, Alkaline Phosphatase 83, Total Protein 5.8 L, Albumin 1.9 L, Globulin 3.9 H, Albumin/Globulin Ratio 0.5 L I & O for Last 24 hours: Intake & Output 11/28/17 11/29/17 11/30/17 12/01/17 11:59 11:59 11:59 11:59 Intake Total 1294 / 1294 710 / 710 1461 / 1461 1850 / 1850 Output Total 2300 / 2300 2600 / 2600 2150 / 2150 4100 / 4100 Balance -1006 / -1006 -1890 / -1890 -689 / -689 -2250 / -2250 Weight 219 lb 7 oz 220 lb 9 oz 225 lb 226 lb 8 oz Microbiology Reports for the Last 24 Hours: Microbiology 11/28/17 09:35 Sputum - Expectorated Sputum Gram Stain - Final 11/28/17 09:35 Sputum - Expectorated Sputum Sputum Culture - Final Yeast 11/25/17 16:38 Blood Blood Culture - Final NO GROWTH AFTER 5 DAYS 11/25/17 16:38 Blood Blood Culture - Final NO GROWTH AFTER 5 DAYS Assessment and Plan (1) Elevated d-dimer Current visit: Yes Status: Acute Category: Medical Code(s): R79.89 - Other specified abnormal findings of blood chemistry (2) Coronary artery disease Current visit: Yes Status: Acute Category: Medical Code(s): I25.10 - Atherosclerotic heart disease of [place] coronary artery without angina pectoris (3) COPD exacerbation Current visit: Yes Status: Acute Category: Medical Code(s): J44.1 - Chronic obstructive pulmonary disease with (acute) exacerbation (4) Congestive heart failure Current visit: Yes Status: Acute Qualifiers: Heart failure type: unspecified Heart failure chronicity: unspecified Qualified Code(s): I50.9 - Heart failure, unspecified Category: Medical Code(s): I50.9 - Heart failure, unspecified (5) Hypoxemia Current visit: Yes Status: Acute Category: Medical Code(s): R09.02 - Hypoxemia (6) Mass of right lung Current visit: Yes Status: Acute Category: Medical Code(s): R91.8 - Other nonspecific abnormal finding of lung field - Assessment and plan all Dx Assessment and Plan for all problems:: Patient has 3 terminal conditions as described by Dr. Parikh yesterday. She has agreed to Hospice consult. Will arrange for Hospice evaluation this afternoon.
--- NOTE | 2017-12-02 08:49 | Progress Note ---
Internal Medicine - PN: Subj *Date: 12/02/17 *Time: 08:46 Interval history: Patient feels a little better than she did yesterday. Please see notes from care management regarding her visit with hospice. This morning patient wants to talk with me about ongoing medical care. She has come to the conclusion that a biopsy would not help her, and that she does not think this would be appropriate given her ongoing condition. We had a very lengthy discussion about her oxygenation status and her options for ongoing palliative care. Exam Vital signs and Labs for Last 24 Hours: Temp Pulse Resp BP Pulse Ox 97.5 F L 89 28 H 156/63 84 L 12/02/17 08:00 12/02/17 08:00 12/02/17 08:01 12/02/17 08:00 12/02/17 08:01 Laboratory Results - last 24 hr 12/01/17 06:15: Total Counted 100, Neutrophils % (Manual) 88 H, Lymphocytes % ( Manual) 11, Atypical Lymphs % 1.0, Platelet Estimate Normal, Anisocytosis 1+, Macrocytosis 1+ I & O for Last 24 hours: Intake & Output 11/29/17 11/30/17 12/01/17 12/02/17 11:59 11:59 11:59 11:59 Intake Total 710 / 710 1461 / 1461 1850 / 1850 480 / 480 Output Total 2600 / 2600 2150 / 2150 4100 / 4100 3100 / 3100 Balance -1890 / -1890 -689 / -689 -2250 / -2250 -2620 / -2620 Weight 220 lb 9 oz 225 lb 226 lb 8 oz 232 lb 5.875 oz Microbiology Reports for the Last 24 Hours: Microbiology 11/28/17 09:35 Sputum - Expectorated Sputum Gram Stain - Final 11/28/17 09:35 Sputum - Expectorated Sputum Sputum Culture - Final Yeast Narrative: Patient is awake. Alert. O2 saturations on her forehead saturation is 85%, peripheral saturation measurements from her fingers are lower but her fingers are not well-perfused. Rhonchi and crackles throughout her lung acosta. Heart rate tachycardic but regular. Abdomen is soft. Assessment and Plan (1) Elevated d-dimer Current visit: Yes Status: Acute Category: Medical Code(s): R79.89 - Other specified abnormal findings of blood chemistry (2) Coronary artery disease Current visit: Yes Status: Acute Category: Medical Code(s): I25.10 - Atherosclerotic heart disease of [place] coronary artery without angina pectoris (3) COPD exacerbation Current visit: Yes Status: Acute Category: Medical Code(s): J44.1 - Chronic obstructive pulmonary disease with (acute) exacerbation (4) Congestive heart failure Current visit: Yes Status: Acute Qualifiers: Heart failure type: unspecified Heart failure chronicity: unspecified Qualified Code(s): I50.9 - Heart failure, unspecified Category: Medical Code(s): I50.9 - Heart failure, unspecified (5) Hypoxemia Current visit: Yes Status: Acute Category: Medical Code(s): R09.02 - Hypoxemia (6) Mass of right lung Current visit: Yes Status: Acute Category: Medical Code(s): R91.8 - Other nonspecific abnormal finding of lung field Given patient's significant lung fibrosis, COPD, significant hypoxia at baseline and this lung mass that is most probably a lung malignancy her prognosis is extremely poor. She understands this and does not wish any aggressive therapy, and reiterates her desire not to be transferred to [place] to a tertiary care facility, and does not wish to have a biopsy done or invasive intubation or CPAP therapy. At this point hospice care is most appropriate for her. The high flow oxygen delivery system may be an impediment to transferring to home, and the patient today states that she would like to be in a facility where "someone can help me if I need it." She mentions [facility] as she has a family connection there. We will reconsult hospice today to assess ability to transfer to a facility under hospice care. Patient would prefer one of the facilities in [place]. Patient saturation levels on her forehead saturation are better, and at home it sounds like she runs in the upper 70% range. So as a result I will see if respiratory therapy can wean her to oxygen levels greater than 75% and possibly off of the high flow machine. We will try Roxanol orally for comfort, shortness of air and better pulmonary mechanics.
[2017-12-02 09:58] LABS: Basophils % 0.1 % (0.1-2.0); Eosinophils # 0.2 K/mm3 (0.0-0.4); Eosinophils % 1.4 % (0.1-12.0); Hematocrit 56.3 % (37.0-47.0); Hemoglobin 17.4 g/dL (12.2-16.2); Lymphocytes # 0.4 K/mm3 (0.7-4.5); Lymphocytes % 3.6 K/mm3 (10-50); Mean Corpuscular HGB Conc 30.9 g/dL (31.8-35.4); Mean Corpuscular Hemoglobin 30.7 pg (27.0-31.2); Mean Corpuscular Volume 99.1 fl (81-99); Mean Platelet Volume 8.4 fl (7.4-10.4); Monocytes # 0.4 K/mm3 (0.1-1.0); Monocytes % 3.3 % (1.7-9.3); Neutrophils # 9.9 K/mm3 (1.8-7.8); Neutrophils % 91.6 % (37.0-80.0); Platelet Count 149 K/mm3 (142-424); Red Blood Count 5.68 M/mm3 (4.20-5.40); Red Cell Distribution Width 14.6 % (11.5-17.5); White Blood Count 10.9 K/mm3 (4.8-10.8)
[2017-12-02 10:05] LABS: Anion Gap 9.5 mEq/L (5-15); Calcium 8.3 mg/dL (8.5-10.1); Potassium 4.5 mmoL/L (3.5-5.1)
[2017-12-02 10:44] LABS: Lymphocytes % 6 % (10-50); Monocytes % 5 % (2-9); Neutrophils % 89 % (42-76); Total Cells Counted 100
[2017-12-02 10:45] LABS: RBC Morphology Normal
--- NOTE | 2017-12-03 12:08 | Progress Note ---
Internal Medicine - PN: Subj *Date: 12/03/17 *Time: 12:01 Interval history: Patient feels more anxious this morning. Sitting up at bedside dyspneic. Overnight has become a little bit more confused, nursing stating that patient is less aware of place and time. Suspect persistent hypoxia and hypercarbia starting to have impact on Alyssa perfusion. More mottled this morning with cyanosis in her feet and mottling on her back. Tripoding with table at bedside. Patient continues to state she does not want aggressive measures or higher level respiratory support. Daughter at bedside today. Patient requesting to speak with hospice again. Patient's goals transitioning to comfort care per discussion today. Slept poorly overnight, complains of dyspnea, anxiety, "feeling cold " Exam Vital signs and Labs for Last 24 Hours: Temp Pulse Resp BP Pulse Ox 97.9 F 96 H 22 136/92 77 L 12/03/17 07:48 12/03/17 08:21 12/03/17 10:35 12/03/17 07:48 12/03/17 10:37 I & O for Last 24 hours: Intake & Output 11/30/17 12/01/17 12/02/17 12/03/17 23:59 23:59 23:59 23:59 Intake Total 911 / 911 1440 / 1440 Output Total 2700 / 2700 4100 / 4100 1000 / 1000 450 / 450 Balance -1789 / -1789 -2660 / -2660 -1000 / -1000 -450 / -450 Weight 102.058 kg 102.739 kg 105.4 kg 101 kg - *Routine HEENT Exam Comments: Ms. Blanc is in respiratory distress, dyspneic on interview, not able to complete full sentences With poor air movement bilaterally, crackles at bases Tachycardic, regular rhythm Cyanotic feet, delayed capillary refill of 5 seconds, week dorsalis pedis pulses , hands cool bilaterally Skin: Space mottling on back up to shoulder blades Psych: Space anxious, confused about time, answers not pertinent to subject - Detailed Eye Exam Eyelids: Left normal inspection Assessment and Plan (1) Elevated d-dimer Current visit: Yes Status: Acute Category: Medical Code(s): R79.89 - Other specified abnormal findings of blood chemistry (2) Coronary artery disease Current visit: Yes Status: Acute Category: Medical Code(s): I25.10 - Atherosclerotic heart disease of [place] coronary artery without angina pectoris (3) COPD exacerbation Current visit: Yes Status: Acute Category: Medical Code(s): J44.1 - Chronic obstructive pulmonary disease with (acute) exacerbation (4) Congestive heart failure Current visit: Yes Status: Acute Qualifiers: Heart failure type: unspecified Heart failure chronicity: unspecified Qualified Code(s): I50.9 - Heart failure, unspecified Category: Medical Code(s): I50.9 - Heart failure, unspecified (5) Hypoxemia Current visit: Yes Status: Acute Category: Medical Code(s): R09.02 - Hypoxemia (6) Mass of right lung Current visit: Yes Status: Acute Category: Medical Code(s): R91.8 - Other nonspecific abnormal finding of lung field - Assessment and plan all Dx Assessment and Plan for all problems:: Patient's clinical condition is tenuous, given hypercarbic and hypoxemic respiratory failure in setting of goals of care with no desire for escalation, current condition terminal. Patient states she desires to pursue comfort measures and would like to talk to hospice again today. 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 Family at bedside in agreement with hospice plan. Hospice consulted and recommended comfort care with IV Ativan for anxiety, increased dose of morphine for air hunger, Robinul for secretions. Persistently hypoxic in the 70s on nasal cannula. is imminent, pursuing symptomatic management and comfort care moving forward.
--- NOTE | 2017-12-03 12:41 | Death Note ---
Discharge Sum: Prov - Provider Primary care physician: Facundo Carrera Admitting clinician: Hussain Parikh Consults: 11/28/17 08:58 Consult to Physician [CONS] Routine Consulting Provider: Foster Taylor Comment: David for CT guided biopsy of lung mass Pronouncing clinician: Feliz Johnson Discharge Sum: Diag - PCOD Cause of : Congestive heart failure Discharge Sum: Summary - Date and Time Date of admission: 11/25/17 18:45 Date of : 12/03/17 Time of : 12:20 - Summary Details: Patient presented with hypercarbic and hypoxemic respiratory failure secondary to congestive heart failure, COPD exacerbation, and pulmonary fibrosis. Treatment initiated with antibiotics, steroids, diuretics and supplemental oxygen. On admission patient also noted to have large mass in right upper lobe that is previously undiagnosed, suspicious for cancer. Given multiple comorbid diagnoses, patient was very clear she did not want to escalate care with increased respiratory support such as BiPAP or intubation. Additionally she was too tenuous for biopsy of cancer for further diagnosis and treatment. During hospitalization she failed to respond to treatment for COPD exacerbation and heart failure. Persistent hypoxemia in setting of maximal high flow nasal cannula support. Given tenuous nature of admission, and incurable illnesses, discussions were had about goals of care. Patient very clear she did not want to escalate pursue more aggressive treatments for curative measures. Patient's goals of care transition to comfort measures. Hospice was consulted and assisted with comfort care. Patient maintained DNR status from time of admission, no code was called and no ACLS activated in accordance with patient' s goals of care. - Additional Data Confirmation of as documented by pronouncing clinician: no pulse, no respirations, no heart sounds, pupils fixed and dilated Family: at bedside Additional persons at bedside: other (Hospice nurse) Attending/PCP notified?: Yes Attending physician: Hussain Parikh MD Was code activated?: No Autopsy requested?: No automobile insurance claim examiner notified?: No Organ bank notified?: Yes Advance directives: No Hospice patient?: Yes
== END 2017-12-03 12:20 | disposition expired ==
LOC: ER 15:51 → 2ND 18:09
PROVIDERS: ADMIT Internal Medicine Adolescent Medicine; ATTEND Internal Medicine Adolescent Medicine